=== PATIENT | male | born 1965 | race Caucasian/White ===

== ENCOUNTER 2024-02-11 06:02 | Emergency (ER) | payer OTHER, SELFPAY ==
--- NOTE | ~2024-02-11 | CT_ITS ---
EXAMINATION: CT abdomen pelvis w con DATE: 02/11/2024 07:15 INDICATION: Abdominal pain. Nausea and vomiting. TECHNIQUE: Computed tomography (CT) of the abdomen and pelvis was performed with 100 mL Omnipaque 350 intravenous contrast. Automated exposure control and iterative reconstruction technique were employe d. The dose-length product was 1314.10 mGy-cm. COMPARISON: None. FINDINGS: The visualized portions of the lung bases demonstrate mild atelectasis on the right. There is a 4 mm nodule in left lower lobe, likely benign. No pleural effusion. The heart is normal. No neo cardial effusion. There are coronary artery calcifications. There are cysts in the liver measuring up to 3.1 cm. The gallbladder, spleen, pancreas, adrenal glands, and kidneys are normal. The prostate i s moderately enlarged. There is diverticulosis of the colon without evidence of diverticulitis. The a ppendix is normal. There is desiccated stool in the distal small bowel. Small bowel loops are mildly dilated and fluid-filled proximal to this area with mesenteric edema. There is trace ascites. There a re no pathologically enlarged lymph nodes. Aortic atherosclerosis is noted. There is a right-sided hy drocele. There is prominent fat in left inguinal canal that may be a hernia. There is severe lumbar s pondylosis. IMPRESSION: 1. Dilated small bowel, likely adynamic ileus or low-grade partial obstruction. Reviewed, dictated and finalized at location A.
[2024-02-11 06:19] VITALS: BP 154/99; PULSE 65; RESP 16; TEMP 36.7; O2SAT 100
[2024-02-11 06:29] LABS: Basophils Percent Auto 0.3 % (0.2-1.2); Eosinophils Percent Auto 0.1 % (0-4.4); Hematocrit 41.6 % (42.0-52.0); Hemoglobin 14.2 g/dL (14.0-18.0); Immature Granulocyte Absolute 0.02 K/mm3 (0.00-0.031); Immature Granulocyte Percent A 0.2 % (0-0.5); Lymphocytes Absolute Auto 0.85 K/mm3 (0.9-3.2); Lymphocytes Percent Auto 9.7 % (18.3-44.2); Mean Corpuscular HGB Conc 34.1 g/dl (32-36); Mean Corpuscular Hemoglobin 32.4 pg (26-34); Monocytes Absolute Auto 0.3 K/mm3 (0.1-0.6); Monocytes Percent Auto 3.3 % (2.6-8.5); Neutrophils Absolute Auto 7.6 K/mm3 (1.3-6.7); Neutrophils Percent Auto 86.4 % (45.5-73.1); Platelet Count Result 306 k/mm3 (150-375); Red Blood Count 4.38 M/mm3 (4.6-6.20); Red Cell Distribution Width 12.9 % (11.5-14.5); White Blood Count 8.8 K/mm3 (4.5-10.0)
[2024-02-11 06:33] LABS: Add Urine Microscopic? YES; Appearance Urine Turbid (Clear); Bacteria Urine None Seen /hpf; Bilirubin Urine Negative (Negative); Blood Urine Negative (Negative); Color Urine Yellow (Yellow); Glucose Urine UA Negative (Negative); Ketones Urine 1+ mg/dL (Negative); Leukocyte Esterase Ur Negative LEU/UL (Negative); Nitrate Urine Negative (Negative); Non Pathogenic Casts 0-2; Protein Urine 1+ mg/dL (Negative); RBC Urine 0-2 /hpf (0-2); Specific Grav Ur 1.026 (1.001-1.035); Squamous Epithelial Cell Urine None Seen /hpf (Few); WBC Urine 0-5 /hpf (0-3); pH Urine 8.5 (5.0-9.0)
[2024-02-11 06:40] LABS: Alanine Aminotransferase 24 U/L (6-50); Albumin Level 4.7 g/dL (3.5-5.1); Alkaline Phosphatase 33 U/L (38-126); Anion Gap 10 mmol/L (4-12); Aspartate Amino Transferase 29 U/L (17-59); Bilirubin,Total 0.4 mg/dL (0.2-1.3); Blood Urea Nitrogen 20 mg/dL (9-20); Calcium 9.7 mg/dL (8.4-10.2); Carbon Dioxide 27 mmol/L (22-30); Chloride 104 mmol/L (98-107); Estimated CRCL calculation 99 ml/min; Estimated Glomerular Filt Rate > 60; Glucose 145 mg/dL (65-110); Lipase 55 U/L (23-300); Potassium 4.1 mmol/L (3.4-5.0); Sodium 141 mmol/L (137-145)
[2024-02-11 07:17] VITALS: BP 148/82; PULSE 64; RESP 16; O2SAT 100
[2024-02-11] MEDS: ONDANSETRON INJ 4 MG/2 ML VIAL IV PUSH (07:39)
[2024-02-11] MEDS: MORPHINE SULFATE (*CRX) 4 MG/ML INJ IV PUSH (07:39)
[2024-02-11] MEDS: SODIUM CHLORIDE 0.9% IV 1,000 ML 999 ML IV CONT (07:39)
--- NOTE | 2024-02-11 08:28 | ED.ABDPAIN ---
HPI - Abdominal Pain General Chief Complaint: Abdominal Pain Stated Complaint: abdominal pain Time Seen by Provider: 02/11/24 07:02 History of Present Illness HPI narrative: Patient is a 59-year-old male who presents the ER with abdominal pain. Cramping. Began through the night. Associated with frequent belching and nausea/vomiting. No fevers or chills or sweats. No known sick contacts. No diarrhea. He has passed gas. No history of previous abdominal surgeries. Related Data Allergies Allergy/AdvReac Type Severity Reaction Status Date / Time No Known Allergies Allergy Verified 02/11/24 06:08 Review of Systems Review of Systems: All systems reviewed & are unremarkable except as noted in HPI and below Constitutional: Constitutional: Reports no additional constitutional complaints ENT: Reports system reviewed and no additional complaints, except as documented Cardiovascular: Cardiovascular: Reports no additional cardiovascular complaints Respiratory: Respiratory: Reports no additional respiratory complaints Gastrointestinal: Gastrointestinal: Reports abdominal pain, Reports bloating, Denies diarrhea, Reports nausea and Reports vomiting Genitourinary: Genitourinary: Reports no additional male genitourinary complaints [facility] Past Medical History Medical History (Updated 02/11/24 @ 10:03 by Jerzy Betancourt MD) Healthy adult male Surgical History Surgical History (Updated 02/11/24 @ 08:36 by Jerzy Betancourt MD) No history of previous surgery Exam Narrative: GENERAL: Uncomfortable-appearing, well-nourished, and in no acute distress. HEAD: Normocephalic, atraumatic. ENT: Mucous membranes moist. NECK: Supple. CHEST: Clear to auscultation. No respiratory distress. HEART: Regular rate and rhythm. Normal peripheral pulses. ABDOMEN: Soft, diffuse discomfort w/o point tenderness, nondistended. EXTREMITIES: Normal range of motion. No edema. SKIN: Warm, dry, no rash. NEURO: Alert and oriented x3. PSYCH: Normal mood and affect. Course Vital Signs Vital signs: Vital Signs Temperature 98.1 F 02/11/24 06:19 Pulse Rate 65 02/11/24 06:19 Respiratory Rate 16 02/11/24 06:19 Blood Pressure 154/99 H 02/11/24 06:19 Pulse Oximetry 100 02/11/24 06:19 Temperature 98.1 F 02/11/24 06:19 Pulse Rate 65 02/11/24 09:32 Respiratory Rate 18 02/11/24 09:32 Blood Pressure 128/89 02/11/24 09:32 Pulse Oximetry 96 02/11/24 09:32 MDM - Abdominal Pain MDM Narrative Medical decision making narrative: -Course: Patient resting comfortably. Hydrated. He has been able to tolerate oral liquids. Discussed treatment plan for home versus admission. Patient prefers to go home. -Co-morbidities complicating care: None -Social determinants of health: Recently retired -External Chart Review: None -Hx from independent Sources: Patient -Independent interpretation of studies: Normal CBC and CMP. Urinalysis with ketones. CT abdomen pelvis with ileus versus early small bowel obstruction. -Interventions: Morphine 4 mg, Zofran 4 mg, normal saline 1 L -Shared decision making / Disposition: Discharge home with strict return precautions. Zofran prescription as well as Bentyl prescription. Patient will adhere to a clear liquid diet. Lab Data 02/11/24 06:18 02/11/24 06:18 Labs: Lab Results 02/11/24 Range/Units 06:18 WBC 8.8 (4.5-10.0) K/mm3 RBC 4.38 L (4.6-6.20) M/mm3 Hgb 14.2 (14.0-18.0) g/dL Hct 41.6 L (42.0-52.0) % MCV 95.0 (80-100) fl MCH 32.4 (26-34) pg MCHC 34.1 (32-36) g/dl RDW 12.9 (11.5-14.5) % Plt Count 306 (150-375) k/mm3 MPV 11.0 H (7.4-10.4) fl Immature Gran % (Auto) 0.2 (0-0.5) % Neut % (Auto) 86.4 H (45.5-73.1) % Lymph % (Auto) 9.7 L (18.3-44.2) % Liberty % (Auto) 3.3 (2.6-8.5) % Eos % (Auto) 0.1 (0-4.4) % Baso % (Auto) 0.3 (0.2-1.2) % Lymph # (Auto) 0.85 L (0.9-3.2) K/mm3 Liberty #
[2024-02-11 09:32] VITALS: BP 128/89; PULSE 65; RESP 18; O2SAT 96
== END 2024-02-11 10:21 | disposition home or self-care (01) ==
PROVIDERS: Emergency Medicine; Emergency Provider Emergency Medicine
DX: K56.7 Ileus, unspecified (principal)
CPT/HCPCS: 36415; 74177; 80053; 81001; 83690; 85025; 96361; 96374; 96375; 99284; J2270; J2405; J7030; Q9967